=== PATIENT | female | born 1985 | race Caucasian/White ===

== ENCOUNTER → 2024-06-21 | Outpatient (CLI) | payer OTHER ==
--- NOTE | 2024-06-21 11:24 | MM ---
Reason for Exam: Clinical finding. Risk Values: Carolina 5 year model risk: 0.3%. NCI Lifetime model risk: 6.8%. Tissue Density: The breasts are extremely dense, which lowers the sensitivity of mammography. Findings: Analyzed By CAD. There is nodular density seen in the upper and lower margin of the left breast posteriorly on the CC view. Breast tissue is very dense which limits its evaluation. There punctate benign-appearing calcifications. No suspicious grouped calcifications. Overall Assessment: Incomplete: need additional imaging evaluation, BI-RAD 0 Management: Diagnostic Breast Ultrasound of both breasts. . Results were given to the patient verbally at the time of exam. Patient should continue monthly self-breast exams. A clinical breast exam by your physician is recommended on an annual basis. This exam should not preclude additional follow-up of suspicious palpable abnormalities. Note on Carolina scores and lifetime risk: 1. A Carolina score greater than 3% is considered moderate risk. If this is the case, consider specialist referral to assess eligibility for a risk reducing agent. 2. If overall lifetime risk for the development of breast cancer is 20% or higher, the patient may qualify for future screening with alternating mammogram and breast MRI. [facility], , 06/21/2024 11:21 AM. Electronically signed and approved by: Jeffrey Puga M.D. Radiologis
--- NOTE | 2024-06-21 12:08 | USB ---
Reason for Exam: Clinical finding. Patient History: Menarche at age 12. First Full-Term at age 21. Premenopausal. Risk Values: Carolina 5 year model risk: 0.4%. NCI Lifetime model risk: 9.1%. Technique: Method: Whole Breast Handheld. Findings: The whole breast of both breasts, the axilla of both breasts and the retroareolar of both breasts were scanned. A complete US of all four quadrants of the breast and retro-areolar region were reviewed. Within the left breast are multiple simple appearing cysts the largest measuring 1.1 cm. Within the right breast at the 8:00 position there is a 8 x 5 mm hypoechoic lesion with slightly lobulated margins. Overall Assessment: Suspicious, BI-RAD 4 Management: Ultrasound Core Biopsy of the right breast. A clinical breast exam by your physician is recommended on an annual basis and results should be correlated with mammographic findings. This exam should not preclude additional follow-up of suspicious palpable abnormalities. Results were given to the patient verbally at the time of exam. [facility], , 06/21/2024 12:05 PM. Electronically signed and approved by: Jeffrey Puga M.D. Radiologis
== END | disposition home or self-care (01) ==
LOC: RADMAMWWP 10:58
PROVIDERS: ATTEND Family Medicine
DX: R92.1 Mammographic calcification found on diagnostic imaging of breast (principal); R92.343 Mammographic extreme density, bilateral breasts; N64.52 Nipple discharge
CPT/HCPCS: 77066; 76641; G0279; 77062